=== PATIENT | female | born 1995 | race Two or more races ===

== ENCOUNTER → 2019-10-17 | Outpatient (REF) | payer OTHER | LOC: M SFHCLERA 09:33 | PROVIDERS: ATTEND Nurse Practitioner Family | DX: R30.0 Dysuria (principal) ==

== ENCOUNTER 2020-07-01 13:18 | Inpatient (IN) | payer OTHER ==
[~2020-07-01] VITALS: Ht 152.4 cm; Wt 132.0 kg
[2020-07-01 13:44] VITALS: BP 100/57
[2020-07-01] MEDS ORDERED: ASPI81CH33 PO (13:53)
[2020-07-01] MEDS ORDERED: ACET325C5 PO (13:53)
[2020-07-01] MEDS ORDERED: PRENTAB9 PO (13:53)
[2020-07-01] MEDS ORDERED: VITA1WAF PO (13:53)
[2020-07-01] MEDS ORDERED: FOLI20CA PO (13:53)
[2020-07-01] MEDS ORDERED: IRON1TAB2 PO (13:53)
--- NOTE | 2020-07-01 16:09 | HPEPDOC ---
Obstetrical History & Physical General Date of Admission Jul 01, 2020 at 13:18 History of Present Illness 24 yo at 39+2 weeks gestation by LMP of 01Oct2019 c/w 11+0 week US on 2019 presents to L&D today for IOL for morbid obesity (BMI 56.8). Kem reports overall feeling well today and has no complaints. She denies any vaginal bleeding, severe contraction pain, or leakage of fluid. She endorses movement. 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 Past Medical History Medical History Morbid obesity Surgical History: Other (eye surgery) Family History Significant Family History: No pertinent family hx Social History Marital Status: Family situation: Spouse/partner home Psychosocial History: No pertinent psych hx * Smoker: non-smoker Alcohol: Denies Drugs: denies Imunizations Tdap status: current Influenza Status: needs Allergies Coded Allergies: No Known Allergies (Unverified , 07/01/20) Medications Scheduled Aspirin (Aspirin) 81 Mg Tab.chew, 81 MG PO DAILY for pain Ferrous Sulfate (Iron) 325 Mg Tablet, 1 TAB PO BID Folic Acid (Folic Acid) 20 Mg Capsule, 1 CAP PO DAILY No.137/Iron/Folic Acd ( Vitamin Tablet) 1 Each Tablet, 1 TAB PO DAILY Miscellaneous Medications Acetaminophen (Tylenol) 325 Mg Capsule, 325 MG PO Ascorbic Acid/Ascorbate Sodium (Vitamin C 500 mg Wafer) 500 Mg Wafer, 1 WAF PO Physical Examination Physical Examination GENERAL: Alert and oriented times three. ABDOMEN: Gravid and non-tender to touch. FETUS: Is vertex (VTX) by sterile vaginal examination (SVE) EXTREMITIES: No edema. Bedside TAUS confirmed cephalic presenting . Vital Signs/I&O Vital Signs Date Time Temp Pulse Resp B/P (MAP) Pulse Ox O2 Delivery O2 Flow Rate FiO2 07/01/20 13:44 99.5 117 20 100/57 (71) Laboratory Data 24H LABS Laboratory Tests 2 07/01/20 13:29: Serology Scanned Report Hepatitis B Testing Urine Culture: No Growth Pertinent Laboratoy Data Blood Type: O+ RBC Antibody Screen: Negative HIV: Negative Hepatitis B: Negative Hepatitis C: Unknown Rapid Plasma Reagin: Nonreactive Rubella: Immune Varicella: Unknown Chlamydia/Gonorrhea: Negative Group B Streptococcus: Negative Quad Screen Test: Unknown Cystic Fibrosis: Negative Glucose Tolerance Test: 134 (early 1 hr GTT 120, repeat 1hr GTT 134) Anatomy Ultrasound Placenta Location: Anterior (anterior fundal) Normal Anatomy: Yes Placenta Previa: No Other Ultrasounds growth scan on [id number] demonstrated EFW of 2752 grams (43rd percentile). Steroid Therapy Steroid Therapy: No Vaginal Examination Dilation: Fingertip Effacement: 50% Station: -3 Cervical Consistency: Medium Cervical Position: Posterior Presentation: Cephalic presentation Position: Vertex (occiput) Assessment Heart Rate (FHR): 145 Variability: Moderate Accelerations: Positive Decelerations: None Tocometer Contractions: No Assessment/Plan Assessment 24 yo at 39+2 weeks gestation presents to L&D today for IOL for morbid obesity (BMI 56.8). Plan Admit to L&D for IOL. Apply IV fluids. L&D labs per protocol. GBS negative. Regular diet. Cervix unfavorable. Will start IOL with cytotec. Patient candidate for both IV analgesia or epidural if desired. Anticipate . Oseas Vazquez, DO Labor and Delivery Counseling Labor and Delivery counseling: Plan will be to deliver your baby through the vagina with possible assistance of forceps or vacuum device if needed for maternal or indications. Forceps and vacuum are devices that can assist with vaginal delivery when normal pushing efforts cannot achieve delivery on their own or when delivery is needed in an emergency for baby's well-being. Medications may be required to induce or augment (help) your labor in order to achieve a vaginal delivery. An episiotomy may be required to help your baby to delivery vaginally. You may also require repair of any lacerations or tears of your vagina or vulva that are caused by delivery. In some cases, emergencies can occur that require an emergency section delivery so quickly that there may not be enough time to stop and complete consent forms for section. Understand that if this occurs, your providers will discuss the need for a section with you before they proceed with surgery. section is the delivery of your baby through an incision in your abdomen. In some situations, section may be safer to mom and baby than continuing labor and is only performed when clinically indicated. Risks of vaginal delivery include but are not limited to: Bleeding, infection, injury to the vagina, pelvic structures, injury to baby, damage to the uterus, reactions to anesthesia, uterine rupture, risk of hysterectomy for life threatening bleeding, or . Medications used to induce or augment labor may increase your risk for infection, uterine tachysystole, uterine rupture, heart rate abnormalities, need for emergency delivery or possible hysterectomy, and hemorrhage. Additional risks for use of forceps and vacuum include: increased risk of perineal and vaginal lacerations, risk of urinary or bowel incontinence, increased risk of injury to baby with br uising, scratches, hematomas on the head, or intracranial bleeding. Kem verbalizes understanding of these risks and elects to proceed with IOL. She also consents to blood products for transfusion should they become necessary. All patient and questions answered. DO TC Nowak CHRISTOPHER J. DO Jul 01, 2020 16:09
[2020-07-01] MEDS ORDERED: miSOPROStol 50MCG 1/2 TABLET PO SCH ×2 (16:10→16:30)
[2020-07-01 16:16] LABS: BASO % 0.3 % (0.0-1.0); EOS % 0.2 % (0.0-3.0); HEMATOCRIT 37.4 % (36.0-47.0); HEMOGLOBIN 12.1 g/dl (12.0-15.5); LYMPH # 1.3 10^3/uL (1.5-5.0); LYMPH % 11.4 % (24.0-44.0); MEAN CORPUSCULAR HEMOGLOBIN 26.2 pg (27.0-33.0); MEAN CORPUSCULAR HGB CONC 32.4 g/dl (32.0-36.5); MONO # 0.7 10^3/uL (0.0-0.8); MONO % 5.9 % (2.0-8.0); NEUTROPHILS # 9.2 10^3/uL (1.5-8.5); NEUTROPHILS % 81.5 % (36.0-66.0); PLATELET COUNT, AUTOMATED 248 10^3/uL (150-450); RED BLOOD COUNT 4.62 10^6/uL (4.00-5.40); WHITE BLOOD COUNT 11.3 10^3/uL (4.0-10.0)
[2020-07-01 16:18] VITALS: BP 102/58
[2020-07-01] MEDS ORDERED: LR 1,000 ML IV SCH (16:34)
[2020-07-01] MEDS ORDERED: LR 1,000 ML IV ONE (16:35)
[2020-07-01] MEDS ORDERED: SLF 3 ML SYR IV PRN (16:35)
[2020-07-01] MEDS ORDERED: PROMETHAZINE INJ 25 MG/ML VIAL (J2550) IV PRN (21:05)
--- NOTE | 2020-07-01 21:08 | IPNPDOC ---
Text Note Date of Service The patient was seen on 07/01/20. NOTE Presented to room for assessment of progress. Kem reports feeling well. She denies any pain. She endorses feeling baby move "constantly." Chaperoned by RN Vitals - VSS, afebrile, normotensive, non tachycardic General - AAOX3, laying in bed, pleasant and conversant, NAD Cervix - /-3. Weller bulb placed with 60ml saline intrauterine FHR tracing - Cat I with moderate variability, +accels, no decels. Ctx Q3-4 mins on toco. Kem had good response to single dose of cytotec. She is arslan regularly. Will add low dose concurrent pitocin not to exceed 10mU while bulb is in place. Stadol and phenergan ordered for pain control per patient request. All patient questions answered. DO SADA Montez,Carol, I+O VS, Carol, I+O Laboratory Tests 07/01/20 16:04 Vital Signs Date Time Temp Pulse Resp B/P (MAP) Pulse Ox O2 Delivery O2 Flow Rate FiO2 07/01/20 16:18 99.2 96 18 102/58 (73) 07/01/20 13:44 97 Room Air CARLIE MONTEZ DO Jul 01, 2020 21:08
[2020-07-01] MEDS ORDERED: OXYTOCIN DRIP 30 UNITS in IV 1 EA IV SCH (21:40)
[2020-07-01 21:52] VITALS: BP 111/65
[2020-07-01] MEDS: BUTORPHANOL 2 MG/ML INJ (J0595) IV PRN (21:53)
[2020-07-01] MEDS ORDERED: SLF 3 ML SYR IV SCH (22:00)
[2020-07-02] VITALS (44 sets, daily range): BP systolic 91–135; BP diastolic 51–87
[2020-07-02] MEDS: BUTORPHANOL 2 MG/ML INJ (J0595) IV PRN (02:04)
[2020-07-02] MEDS: LR 1,000 ML IV SCH ×3 (07:24→13:50)
[2020-07-02] MEDS ORDERED: FENTANYL 2MCG/ML ROPIVACAINE 0.2% IN 0.9% NACL 100ML IVBAG As Ordered ONE (08:17)
--- NOTE | 2020-07-02 09:08 | IPNPDOC ---
Obstetrical Progress Note Date of Service Jul 02, 2020 Subjective Accepting care of this 24 yo G1 @ 39+3 who is being induced. she had 2 doses of cytotec and a cook boone that came out at 0615. pit now is at 10 and patient is asking for epidural FHT: 140, Mod bill,+accels, -decels--cat I tracing TOCO: 3-08/08, PIT 10 SVE: 50/-1 A/P Cat I tracing, latent labor. continue pit per L&d Protocol -will plan for AROM after epidural placed. Objective Vital Signs Date Time Temp Pulse Resp B/P (MAP) Pulse Ox O2 Delivery O2 Flow Rate FiO2 07/02/20 07:35 98.4 75 20 113/56 (75) 96 Room Air SID ORDOÑEZ MD Jul 02, 2020 09:08
[2020-07-02] MEDS ORDERED: REFRIGERATOR IV KEYS XX PRN (10:50)
[2020-07-02] MEDS ORDERED: NALOXONE INJ 0.4MG/1ML VIAL (J2310 PER 1MG) IV PRN (10:50)
[2020-07-02] MEDS ORDERED: LACTATED RINGER'S 1000 ML IV PRN (10:50)
[2020-07-02] MEDS ORDERED: ONDANSETRON 4MG/2ML VIAL IV PRN (10:50)
[2020-07-02] MEDS ORDERED: EPIDURAL/PCA KEYS XX PRN (10:50)
[2020-07-02] MEDS ORDERED: EPIDURAL COMMENT XX SCH (10:50)
[2020-07-02] MEDS ORDERED: diphenhydrAMINE 50MG/ML VIAL (J1200) IV PRN (10:50)
[2020-07-02] MEDS: FENTANYL/ROPIVACAINE/NACL BAG 100 ML EPIDURAL SCH ×2 (10:55→18:20)
--- NOTE | 2020-07-02 12:36 | IPNPDOC ---
Obstetrical Progress Note Date of Service Jul 02, 2020 Subjective TO ROOM FOR ASSESSMENT Patient feeling some pressure. she is comfortable with epidural in place FHT: 140, Mod bill,+accels, -Decels--cat I tracing TOCO: 2-08/08, pit 8 SVE: /-1, AROM CLEAR, IUPC Placed- difficult to trace contractions due to body habitus. a/p Cat I tracing, latent labor. arom now with clear fluids. IUPC placed at this time to help trace contractions and titrate pitocin. continue increasing pit per L&D Protocol. Objective Vital Signs Date Time Temp Pulse Resp B/P (MAP) Pulse Ox O2 Delivery O2 Flow Rate FiO2 07/02/20 11:36 71 20 114/55 (74) 07/02/20 09:57 98 Room Air 07/02/20 07:35 98.4 SID ORDOÑEZ MD Jul 02, 2020 12:36
[2020-07-02] MEDS: ePHEDrine SULFATE 25 MG/5 ML(5MG/ML) SYRINGE IV PRN ×2 (13:15→13:19)
--- NOTE | 2020-07-02 17:56 | IPNPDOC ---
Obstetrical Progress Note Date of Service Jul 02, 2020 Subjective To room for acceptance of care. Patient reports increased pain with contractions, especially with her back. She reports that her recent epidural adjustment seems to not have helped. Objective Vital Signs Date Time Temp Pulse Resp B/P (MAP) Pulse Ox O2 Delivery O2 Flow Rate FiO2 07/02/20 17:10 100.2 20 100 Room Air 07/02/20 16:34 82 126/61 (82) Tocometer Contractions: Yes Frequency: regular Sterile Vaginal Examination Dilation: 6 cm Effacement (%): 90% Station: -2 Cervical Consistency: Soft Cervical Position: Middle Postion/Presentation: Cephalic presentation (by exam) Assessment and Plan Status: Reassuring Anticipate: Vaginal Delivery Additional Comments Ms. Vela is a 24yo at 39+2 being induced for BMI 56. She was 1/50/- 3 on admission and recieved 2 doses of cytotec. She had a DLFB placed and it came out and she was 5/50/-1 at 0615. She was last checked by Dr. Duong at 1230 and was 5/50/-1. She currently has a FSE and IUPC in place. She has an epidural but poor pain control, so anesthesia was consulted. The FHR has elevated to baseline of 160 and the maternal temp to 100.2, at this time she is not meeting criteria for IAI but will continue to closely monitor. She overall has a CAT I tracing that is reactive with regular contractions with adequate MVUs. Her VS have been normal. On exam I called her 6/90/-2. Given she is now in active labor will reassess in 4h, I discussed with the patient that in 4h if she is unchanged with adequate contractions that this is a poor predictor for a successful vaginal delivery and is recommended. KATIE UMANA DO Jul 02, 2020 17:56
--- NOTE | 2020-07-02 20:04 | IPNPDOC ---
Obstetrical Progress Note Date of Service Jul 02, 2020 Subjective To room for assessment of increased pain and pressure. Objective Vital Signs Date Time Temp Pulse Resp B/P (MAP) Pulse Ox O2 Delivery O2 Flow Rate FiO2 07/02/20 19:06 98.7 83 20 117/57 (77) 07/02/20 17:10 100 Room Air Assessment Heart Rate (FHR): 170 Variability: Moderate Accelerations: Positive Decelerations: Variable Heart Patterns: Tachycardia Heart Rate Tracing: Category II Tocometer Contractions: Yes Frequency: regular Sterile Vaginal Examination Dilation: 8 cm Effacement (%): 90% Station: -1 Assessment and Plan Anticipate: Vaginal Delivery Additional Comments Patient currently with CAT II tracing for intermittent tachycardia and intermittent variable decels. Variability is still moderate so overall reassuring evelyn as her cervix is changing, she is now 8cm. Her pain control is not ideal, anesthesia was consulted again. Patient remains afebrile and non- tachycardic. Will reassess in 1-2h or sooner if clinically indicated. KATIE UMANA DO Jul 02, 2020 20:04
[2020-07-03] VITALS (15 sets, daily range): BP systolic 106–143; BP diastolic 56–82
[2020-07-03 00:10] LABS: CORD GAS HCO3 A 15.4 MEQ/L; CORD GAS O2 SAT A 77.6 %; CORD GAS PCO2 A 40.3 mmHg; CORD GAS PH A 7.2 UNITS; CORD GAS PO2 A 39.8 mmHg; CORD GAS SBC A 14.8 MEQ/L; CORD GAS TCO2 A 16.6 MEQ/L
[2020-07-03 00:11] LABS: CORD GAS HCO3 V 16.5 MEQ/L; CORD GAS O2 SAT V 75.9 %; CORD GAS PCO2 V 34.8 mmHg; CORD GAS PH V 7.295 UNITS; CORD GAS PO2 V 35.9 mmHg; CORD GAS SBC V 16.9 MEQ/L; CORD GAS TCO2 V 17.6 MEQ/L
[2020-07-03] MEDS ORDERED: MORPHINE 4 MG/ML 1ML VIAL/SYRINGE (J2270) As Ordered ONE (00:20)
[2020-07-03] MEDS ORDERED: TRANEXAMIC ACID 100 MG/ML 10ML VIAL As Ordered ONE (00:21)
[2020-07-03] MEDS ORDERED: ceFAZolin SOD 2 GM in IV 1 EA IV ONE ×2 (00:35→01:00)
[2020-07-03] MEDS ORDERED: ceFAZolin SOD 3 GM in D5W MINI-BAG PLUS 50 ML IV ONE (00:55)
[2020-07-03] MEDS ORDERED: ceFAZolin SOD 1 GM in D5W MINI-BAG PLUS 50 ML IV ONE (01:00)
--- NOTE | 2020-07-03 01:31 | DNPDOC ---
[facility] Delivery Note Delivery Note DATE OF DELIVERY: 07/02/20 PREDELIVERY DIAGNOSIS: 39+3/7 weeks' gestation and labor. Morbid obesity. POST DELIVERY DIAGNOSIS: morbid obesity, vaginal delivery, bilateral sulcal tears, second degree midline laceration, hemorrhage PROCEDURE: vaginal delivery, repair of sulcal and perineal lacerations CLINICAL SYSTEMS ANALYST: Gregory Whitman ANESTHESIA: epidural ESTIMATED BLOOD LOSS: 1171 mL by QBL FINDINGS: 3120g, Score 9/9, nuchal cord times 0. DELIVERY SUMMARY: Ms. Vela is a 24yo who presented for induction at 39+2 for morbid obesity with a BMI of 56. She was induced the DLFB and cytotec. She had an epidural placed then was ruptured. She progressed with good maternal effort and the aid of pitocin to C/C/+3. During pushing there was a CAT II tracing for occasional variable decelerations but variability remained moderate. Approx 5 minutes prior to delivery variability became minimal so the ritgans maneuver was used the expedite delivery. The head was delivered followed by the corpus without difficulty. The baby had good tone, spontaneous movement, and cry. APGARS 9/9. Notably following delivery of the baby there was a gush of blood. Cord clamping was delayed 60s and the cord was clamped and cut by the FOB. Cord gasses and blood were obtained. The placenta delivered with kasey downward traction, notably there was bleeding at this time. With delivery of the placenta pitocin was started. Brisk bleeding was noted despite pitocin and bimanual massage. Multiple large clots were swept from the uterus, 3g of IV ancef was ordered. During this time the patients pain control was not optimized; she received 4mg morphine IV and anesthesia was called to reassess her epidural as it had been intermittent throughout her labor. The patient received Methergine, TXA, cytotec, and total pitocin 2 bags resulting in scant bleeding and a firm uterus. The lacerations were repaired with 2-0 vicryl in the usual fashion and were hemostatic. The uterus remained firm. The sponge, lap and needle counts were correct. The patient remained hemodynamically stable. GREGORY UMANA DO Jul 03, 2020 01:31
[2020-07-03] MEDS ORDERED: METHYLERGONOVINE MALEATE 0.2 MG TAB PO PRN (01:35)
[2020-07-03] MEDS ORDERED: TRANEXAMIC ACID INJection 1,000 MG in NS 100 ML IV ONE (01:35)
[2020-07-03] MEDS ORDERED: MORPHINE 4 MG/ML 1ML VIAL/SYRINGE (J2270) IV ONE (01:35)
[2020-07-03] MEDS ORDERED: DOCUSATE SODIUM 100MG CAPSULE PO PRN (01:35)
[2020-07-03] MEDS ORDERED: DIBUCAINE 1% OINTMENT 30GM TOP PRN (01:35)
[2020-07-03] MEDS ORDERED: IBUPROFEN 600MG TAB PO PRN (01:35)
[2020-07-03] MEDS ORDERED: ACETAMINOPHEN 500 MG TAB PO PRN (01:35)
[2020-07-03] MEDS ORDERED: LIDOCAINE VISCOUS 2% SOLN 15ML UDC TOP PRN (01:35)
[2020-07-03] MEDS ORDERED: ACETAMINOPHEN TAB 650MG DOSE (2X325MG) PO PRN (01:35)
[2020-07-03] MEDS ORDERED: OXYTOCIN DRIP 30 UNITS in IV 1 EA IV SCH (01:39)
[2020-07-03 02:15] LABS: HEMATOCRIT 34.7 % (36.0-47.0); HEMOGLOBIN 11.2 g/dl (12.0-15.5); MEAN CORPUSCULAR HGB CONC 32.3 g/dl (32.0-36.5); MEAN CORPUSCULAR VOLUME 80.7 fl (80.0-96.0); PLATELET COUNT, AUTOMATED 215 10^3/uL (150-450); WHITE BLOOD COUNT 28.3 10^3/uL (4.0-10.0)
[2020-07-03] MEDS: IBUPROFEN 800 MG TAB PO PRN ×3 (02:40→20:48)
--- NOTE | 2020-07-03 06:29 | IPNPDOC ---
Progress Note Date of Service: Jul 03, 2020 Day#: 1 Progress Note SUBJECT: 24 yo at 39+2 weeks gestation presents to L&D today for IOL for morbid obesity (BMI 56.8) and lagging HC. Ser was c/b a PPH with EBL 1171cc requiring pit x2 bags, methergine, cytotec, and TXA. She recieved 3g ancef for prophylaxis and morphine IV and lidocaine SC during repair of a 2MLL with bilateral sidewalls. Her baby was born with APGARs 9/9 but shortly after delivery began to have seizures and has been transferred to [facility] for evaluation. The patient would like to leave as soon as safe to be with her baby, I obtained a CBC after delivery and this morning to ensure a stable H/H before discharged. She denied si/sx of anemia. She has been ambulating, voiding spontaneously without issue and tolerating regular diet. Breast feeding without issue. Reports lochia is less than a normal period. Patient is ambulating well. Denies any pain. Voiding and passing flatus without difficulty. OBJECTIVE: VITAL SIGNS: Within normal limits, afebrile. Alert and oriented times three. No increased WOB Heart rate: non-tachycardic Abdomen: Fundus firm at U-2. Soft, NTTP. [Minimal] lochia. per pt H/H (antepartum) 37 -> (immediate PP) -> (PPD1) ASSESSMENT: 24 yo at 39+2 weeks gestation presents to L&D today for IOL for morbid obesity (BMI 56.8) and lagging HC. Ser was c/b a PPH with EBL 1171cc requiring pit x2 bags, methergine, cytotec, and TXA. She recieved 3g ancef for prophylaxis and morphine IV and lidocaine SC during repair of a 2MLL with bilateral sidewalls. Her baby was born with APGARs 9/9 but shortly after delivery began to have seizures and has been transferred to [facility] for evaluation. She did have some mild temp elevations and a period of tachycardia intrapartum so there was concern for developing IAI but this resolved without patient meeting criteria. She has normal VS and a benign exam. She has no si/sx of anemia and her bleeding is scant. Her H/H went from (antepartum) -> (immediate PP) . Another for this morning is pending. She would like to discharge as soon as possible to be with her baby, if her AM H/H is stable and her bleeding remains scant I feel that is reasonable. PLAN: 1. Discharge to home today if CBC is stable 2. Tylenol and Motrin for pain. 3. Encourage breast feeding and ambulation. 4. Routine PP visit in 6 weeks in clinic. 5. Discussed return precautions at length. VS, I&O, 24H, Fishbone Vital Signs/I&O Vital Signs Date Time Temp Pulse Resp B/P (MAP) Pulse Ox O2 Delivery O2 Flow Rate FiO2 07/03/20 06:00 98.3 86 18 141/82 (101) 07/03/20 03:30 97 Room Air I&O- Last 24 Hours up to 6 AM 07/03/20 06:00 Intake Total 5180 ml Output Total 3146 ml Balance 2034 ml Laboratory Data 24H LABS Laboratory Tests 2 07/03/20 00:05: Cord Arterial Blood pH 7.200, Cord Arterial Blood PCO2 40.3, Cord Arterial Blood PO2 39.8, Cord Arterial Blood HCO3 15.4, Cord Arterial Blood Total CO2 16.6, Cord Arterial Blood Base Excess -12.0, Cord Arterial Base Excess (Standard 14.8, Cord Arterial Bld Oxygen Saturation 77.6, Cord Venous Blood pH 7.295, Cord Venous Blood PCO2 34.8, Cord Venous Blood PO2 35.9, Cord Venous Blood HCO3 16.5, Cord Venous Blood Total CO2 17.6, Cord Venous Base Excess (Actual) -9.0, Cord Venous Base Excess (Standard) 16.9, Cord Venous Blood Oxygen Saturation 75.9 07/03/20 02:08: Nucleated Red Blood Cells % (auto) 0.0 CBC/BMP Laboratory Tests 07/03/20 02:08 KATIE UMANA DO Jul 03, 2020 06:29
[2020-07-03 06:33] LABS: HEMATOCRIT 31.4 % (36.0-47.0); HEMOGLOBIN 10.1 g/dl (12.0-15.5); MEAN CORPUSCULAR HGB CONC 32.2 g/dl (32.0-36.5); MEAN CORPUSCULAR VOLUME 80.9 fl (80.0-96.0); PLATELET COUNT, AUTOMATED 191 10^3/uL (150-450); RED BLOOD COUNT 3.88 10^6/uL (4.00-5.40); WHITE BLOOD COUNT 25.6 10^3/uL (4.0-10.0)
[2020-07-03] MEDS: PRENATAL VITAMINS CHEWABLE TABLET PO SCH (07:26)
[2020-07-03] MEDS ORDERED: INFLUENZA QUADRIVALENT PF VACCINE 0.5ML SYRINGE IM ONE (09:00)
--- NOTE | 2020-07-03 14:46 | IPNPDOC ---
Progress Note Date of Service: Jul 03, 2020 Day#: 1 Progress Note SUBJECT: Kem Vela is a 24-year-old 1 now Para 1-0-0-1 status post spontaneous vaginal delivery complicated by hemorrhage, manual exploration of the uterus, and repair complicated by morbid obesity. Infant was transferred to [place] after delivery due to seizures noted 30 minutes after delivery. Patient and her spouse desired to leave the hospital so that they could be with their baby. I discussed with her that due to complications that arose after delivery, I recommended that she be considered for discharge tomorrow if she remains in stable condition. I made this recommendation so that she could be further monitored for infection, hemorrhage, and to monitor for signs and symptoms of her anemia. We discussed leaving AMA (Against medical advice) or staying for recovery and monitoring of stability of symptoms. Patient denies lightheadedness, dizziness, SOB, and palpitations at this time. OBJECTIVE: VITAL SIGNS: Within normal limits, afebrile. Alert and oriented times three. Breath sounds clear to auscultation. Heart rate: Regular rate and rhythm, no murmurs, rubs or gallops. Abdomen: Fundus firm at U-2. Soft, NTTP. [Minimal] lochia. ASSESSMENT: Day 1 PLAN: 1. Repeat CBC in AM 2. Ambulate around the room 3. After discussion and options, her and her spouse have decided to stay for discharge 4. All questions were answered, she and her spouse have verbalized understanding of the plan and are agreeable VS, I&O, 24H, [place] Vital Signs/I&O Vital Signs Date Time Temp Pulse Resp B/P (MAP) Pulse Ox O2 Delivery O2 Flow Rate FiO2 07/03/20 14:00 97.1 96 16 111/59 (76) 100 Room Air I&O- Last 24 Hours up to 6 AM 07/03/20 06:00 Intake Total 5180 ml Output Total 3146 ml Balance 2034 ml Laboratory Data 24H LABS Laboratory Tests 2 07/03/20 00:05: Cord Arterial Blood pH 7.200, Cord Arterial Blood PCO2 40.3, Cord Arterial Blood PO2 39.8, Cord Arterial Blood HCO3 15.4, Cord Arterial Blood Total CO2 16.6, Cord Arterial Blood Base Excess -12.0, Cord Arterial Base Excess (Standard 14.8, Cord Arterial Bld Oxygen Saturation 77.6, Cord Venous Blood pH 7.295, Cord Venous Blood PCO2 34.8, Cord Venous Blood PO2 35.9, Cord Venous Blood HCO3 16.5, Cord Venous Blood Total CO2 17.6, Cord Venous Base Excess (Actual) -9.0, Cord Venous Base Excess (Standard) 16.9, Cord Venous Blood Oxygen Saturation 75.9 07/03/20 02:08: Nucleated Red Blood Cells % (auto) 0.0 07/03/20 06:21: Nucleated Red Blood Cells % (auto) 0.0 CBC/BMP Laboratory Tests 07/03/20 02:08 07/03/20 06:21 ANAMARIA [facility] Jul 03, 2020 14:46
[2020-07-04 02:00] VITALS: BP 111/67
[2020-07-04 05:37] LABS: HEMATOCRIT 28.4 % (36.0-47.0); HEMOGLOBIN 9.1 g/dl (12.0-15.5); MEAN CORPUSCULAR HEMOGLOBIN 26.5 pg (27.0-33.0); MEAN CORPUSCULAR VOLUME 82.6 fl (80.0-96.0); PLATELET COUNT, AUTOMATED 176 10^3/uL (150-450); RED BLOOD COUNT 3.44 10^6/uL (4.00-5.40); WHITE BLOOD COUNT 12.2 10^3/uL (4.0-10.0)
[2020-07-04 06:00] VITALS: BP 110/71
--- NOTE | 2020-07-04 06:15 | OBDS ---
[facility] Obstetrical Discharge Sum. Obstetrical Discharge Summary Tip Cutter/Provider: Mariano Stephens MD Date: Jul 04, 2020 Time: 07:00 : 1 Term: 1 Pre-term: 0 Abortions: 0 Livin VDRL: Non-Reactive Rh: Positive Rubella: Immune Labor IOL AT 39.2 WEEKS BMI 56.8 Delivery FEMALE 6 LBS 14 OZ, 3120 GRAMS PPH 1100 ML SECOND DEGREE REPAIRED . 9/9 A PH 7.2 BE -12.0 VENOUS PH 7.29 BE -9.0 Sex: Female Infant Weight: pounds ( 6 ), ounces (14), grams (3120) Anesthesia: Regional Anesthesia Episiotomy SECOND DEGREE REPAIRED A/P, Post Course List any complications Admission diagnosis: . IOL Discharge diagnosis: CONFINED Condition at Discharge: Discharge Instructions: [Home/other] 6 WEEK PP FT DRUM OB Activity: ATT Diet: KILLIAN Medications: MEDICATION AT [place] Follow-up: 6 WEEKS FT DRUM OB Other: VS, Fishbone, I+O Item Value Date Time Cord Arterial Blood pH 7.200 UNITS 07/03/204 Cord Arterial Blood PCO2 40.3 mmHg 07/03/20 0005 Cord Arterial Blood PO2 39.8 mmHg 07/03/20 0005 Cord Arterial Blood HCO3 15.4 MEQ/L 07/03/204 Cord Arterial Blood Total CO2 16.6 MEQ/L 07/03/20 0005 Cord Arterial Blood Base Excess -12.0 07/03/20 0005 Cord Arterial Base Excess (Standard 14.8 MEQ/L 07/03/20 0005 Cord Arterial Bld Oxygen Saturation 77.6 % 07/03/204 Cord Venous Blood pH 7.295 UNITS 07/03/204 Cord Venous Blood PCO2 34.8 mmHg 07/03/204 Cord Venous Blood PO2 35.9 mmHg 07/03/204 Cord Venous Blood HCO3 16.5 MEQ/L 07/03/204 Cord Venous Blood Total CO2 17.6 MEQ/L 07/03/20 0005 Cord Venous Base Excess (Standard) 16.9 MEQ/L 07/03/204 Cord Venous Base Excess (Actual) -9.0 07/03/204 Cord Venous Blood Oxygen Saturation 75.9 % 07/03/20 0005 Laboratory Tests 07/03/20 06:21 3/6/21 05:22 Vital Signs Date Time Temp Pulse Resp B/P (MAP) Pulse Ox O2 Delivery O2 Flow Rate FiO2 07/04/20 02:00 97.0 77 18 111/67 (82) 98 Room Air Mariano Stephens MD Jul 04, 2020 06:10
[2020-07-04] MEDS: PRENATAL VITAMINS CHEWABLE TABLET PO SCH (07:58)
[2020-07-04] MEDS: IBUPROFEN 800 MG TAB PO PRN (07:59)
== END 2020-07-04 08:55 | disposition home or self-care (01) | DRG 807 ==
LOC: M LDI 13:18 → M OBS 07-03 04:11
PROVIDERS: ADMIT Obstetrics & Gynecology; ATTEND Obstetrics & Gynecology
PROC: 3E0P7GC Introduction of Other Therapeutic Substance into Female Reproductive, Via Natural or Artificial Opening (ICD-10-PCS; 2020-07-01)
PROC: 10E0XZZ Delivery of Products of Conception, External Approach (ICD-10-PCS; principal; 2020-07-02)
PROC: 0KQM0ZZ Repair Perineum Muscle, Open Approach (ICD-10-PCS; 2020-07-02)
PROC: 10907ZC Drainage of Amniotic Fluid, Therapeutic from Products of Conception, Via Natural or Artificial Opening (ICD-10-PCS; 2020-07-02)
PROC: 0HQ9XZZ Repair Perineum Skin, External Approach (ICD-10-PCS; 2020-07-02)
DX: O99.214 Obesity complicating childbirth (principal); Z37.0 Single live birth; E66.9 Obesity, unspecified; Z3A.39 39 weeks gestation of pregnancy; O76 Abnormality in fetal heart rate and rhythm complicating labor and delivery; O72.0 Third-stage hemorrhage; O70.1 Second degree perineal laceration during delivery; O70.0 First degree perineal laceration during delivery

== ENCOUNTER → 2021-01-15 | Outpatient (REF) | payer OTHER ==
[~2021-01-15] MED LIST: ACET325C5 PO; ASPI81CH33 PO; FOLI20CA PO; IRON1TAB2 PO; PRENTAB9 PO; VITA1WAF PO
[2021-01-15 17:04] LABS: APPEARANCE, URINE MANUAL HAZY (CLEAR); COLOR, URINE MANUAL LT YELLOW (YELLOW)
[2021-01-15 17:05] LABS: BILIRUBIN, URINE MANUAL NEGATIVE (NEGATIVE); GLUCOSE, URINE (UA) MANUAL NEGATIVE (NEGATIVE); KETONE, URINE MANUAL NEGATIVE (NEGATIVE); LEUKOCYTE ESTERASE, URINE MAN POSITIVE (NEGATIVE); NITRITE, URINE MANUAL NEGATIVE (NEGATIVE); PROTEIN, URINE MANUAL TRACE mg/dL (NEGATIVE); UROBILINOGEN, URINE MANUAL NORMAL (NORMAL)
[2021-01-15 17:06] LABS: BLOOD URINE MANUAL TRACE (NEGATIVE)
[2021-01-15 17:11] LABS: BACTERIA, URINE SMALL AMOUNT; HYALINE CAST, URINE NONE SEEN /lpf (0-1); RBC, URINE NONE SEEN /hpf (0-3); SQUAMOUS EPITHELIAL CELL URINE SMALL AMOUNT /hpf (SMALL AMT)
== END ==
LOC: M LAB REF 16:07
PROVIDERS: ATTEND Physician Assistant
DX: N39.0 Urinary tract infection, site not specified (principal)

== ENCOUNTER → 2021-09-01 | Outpatient (REF) | payer OTHER ==
[2021-09-01 17:46] LABS: APPEARANCE, URINE CLEAR (CLEAR); BACTERIA, URINE AUTO NEGATIVE (NEGATIVE); BILIRUBIN, URINE AUTO NEGATIVE (NEGATIVE); BLOOD, URINE BLOOD NEGATIVE (NEGATIVE); COLOR, URINE STRAW (YELLOW); GLUCOSE, URINE (UA) AUTO NEGATIVE (NEGATIVE); KETONE, URINE AUTO NEGATIVE (NEGATIVE); LEUKOCYTE ESTERASE, URINE AUTO NEGATIVE (NEGATIVE); NITRITE, URINE AUTO NEGATIVE (NEGATIVE); PROTEIN, URINE AUTO NEGATIVE (NEGATIVE); RBC, URINE AUTO 0 /HPF (0-3); SPECIFIC GRAVITY URINE AUTO 1.013 (1.002-1.035); SQUAMOUS EPITHELIAL CELL UR AU 0 /HPF (0-6); UROBILINOGEN, URINE AUTO 0.2 mg/dL (0.0-2.0); WBC, URINE AUTO 1 /HPF (0-3)
[2021-09-01 20:22] LABS: GC DNA AMPLIFICATION NEGATIVE (NEGATIVE)
== END ==
LOC: M LAB REF 16:49
PROVIDERS: ATTEND Physician Assistant
DX: R30.0 Dysuria (principal)